=== PATIENT | female | born 1995 | race Caucasian/White ===

== ENCOUNTER 2022-04-19 17:02 | Emergency (ER) | payer MEDICAID ==
[~2022-04-19] VITALS: Ht 154.9 cm; Wt 66.0 kg
[2022-04-19] MEDS ORDERED: NEOM10DR11 LEFT EAR (18:42)
[2022-04-19] MEDS ORDERED: AMOX1TAB16 MT (18:42)
[2022-04-19 20:20] VITALS: BP 111/78
== END 2022-04-19 19:45 | disposition home or self-care (01) ==
LOC: ER 17:02
DX: H60.92 Unspecified otitis externa, left ear (principal)
CPT/HCPCS: 81025; 99282